=== PATIENT | male | born 1980 | race Asian ===

== ENCOUNTER 2023-04-04 17:33 | Emergency (ER) | payer OTHER ==
[~2023-04-04] VITALS: Ht 167.6 cm; Wt 72.6 kg
[2023-04-04 17:56] VITALS: BP_SYST 112; PULSE 103; RESP 18; TEMP 98.3; O2SAT 95
[2023-04-04 21:15] VITALS: BP_SYST 115; PULSE 99; RESP 18; TEMP 98.3; O2SAT 96
== END 2023-04-04 21:15 | disposition home or self-care (01) ==
LOC: SED 17:33
DX: S02.2XXA Fracture of nasal bones, initial encounter for closed fracture (principal); Z79.899 Other long term (current) drug therapy; Y04.0XXA Assault by unarmed brawl or fight, initial encounter; Y93.89 Activity, other specified; Y92.89 Other specified places as the place of occurrence of the external cause; Y99.8 Other external cause status
CPT/HCPCS: 70450-TC; 70486-TC; 76376; 99284